=== PATIENT | female | born 1975 | race Caucasian/White ===

== ENCOUNTER 2023-05-02 19:40 | Emergency (ER) | payer OTHER ==
[~2023-05-02] VITALS: Ht 172.7 cm; Wt 72.0 kg
[2023-05-02 19:53] VITALS: O2SAT 96
[2023-05-02 20:57] LABS: BASOPHILS % 1.1 % (0.0-2.0); EOSINOPHILS % 2.2 % (0.0-5.0); HEMATOCRIT. 39.4 % (36.0-48.0); HEMOGLOBIN. 13.6 g/dL (12.0-16.0); LYMPHOCYTES % 26.1 % (20.0-50.0); MEAN CORPUSCULAR HEMOGLOBIN 30.8 pg (28.0-32.0); MEAN CORPUSCULAR HGB CONC 34.5 g/dL (31.0-37.0); MEAN CORPUSCULAR VOLUME 89.3 fL (81.0-99.0); MONOCYTES % 6.8 % (2.0-8.0); NEUTROPHILS % 63.8 % (40.0-76.0); PLATELET 305 x1000/uL (130-400); RED BLOOD CELL COUNT 4.41 mill/uL (4.2-5.4); RED CELL DISTRIBUTION WIDTH 13.2 % (11.6-14.6); WHITE BLOOD COUNT 9.9 x1000/uL (4.5-11.0)
[2023-05-02 21:06] LABS: PROTHROMBIN TIME 10.3 sec (9.6-11.0)
[2023-05-02 21:08] LABS: CHLORIDE 106 mEq/L (98-107); INDEX HEMOLYSI 1 (1-3); INDEX ICTERIC 1 (1-4); INDEX LIPEMIC 1 (1-3); POTASSIUM 3.7 mEq/L (3.5-5.1); SODIUM 135 mEq/L (136-145)
[2023-05-02 21:19] LABS: ALANINE AMINOTRANSFERASE 24 IU/L (13-61); ALBUMIN 3.8 g/dL (3.4-5.0); ASPARTATE AMINOTRANSFERASE 12 IU/L (15-37); BILIRUBIN TOTAL 1.7 mg/dL (0.1-1.0); CALCIUM 8.9 mg/dL (8.5-10.1); CARBON DIOXIDE 24 mEq/L (21-32); CREATININE 0.6 mg/dL (0.6-1.3); ETHANOL BLOOD < 10 mg/dL (<10); GLUCOSE 94 mg/dL (70-105); NT PRO B-TYPE NATRIURETIC PEP 24 pg/mL (5-125); TROPONIN I HIGH SENSITIVITY 4 ng/L (<54); UREA NITROGEN BLOOD 8 mg/dL (7-21)
[2023-05-02 21:24] LABS: HCG SCREEN NEGATIVE
[2023-05-02] MEDS ORDERED: IOHEXOL-350 100 ML BOTTLE ONE (23:23)
[2023-05-03 01:30] VITALS: BP 152/100; PULSE 64; RESP 16; TEMP 98.1
== END 2023-05-03 01:45 | disposition short-term general hospital (02) ==
LOC: ER 21:38
DX: R20.2 Paresthesia of skin (principal); I10 Essential (primary) hypertension; F17.200 Nicotine dependence, unspecified, uncomplicated
CPT/HCPCS: 80053; 80320; 84703; 83880; 85025; 85610; 84484; 36415; 71045; 70496; 70498; 70450; 93005; 99291; Q9967; Z7610; G0480